=== PATIENT | female | born 1995 | race Caucasian/White ===

== ENCOUNTER → 2023-05-03 09:36 | Outpatient (REF) | payer MEDICAID, SELFPAY | LOC: PNTC 09:36 | PROVIDERS: ATTENDING PHYSICIAN Obstetrics & Gynecology | DX: O30.009 Twin pregnancy, unspecified number of placenta and unspecified number of amniotic sacs, unspecified trimester (principal) | CPT/HCPCS: 76805; 76810 ==

== ENCOUNTER → 2023-05-30 07:54 | Outpatient (REF) | payer OTHER, SELFPAY | LOC: PNTC 07:54 | PROVIDERS: ATTENDING PHYSICIAN Obstetrics & Gynecology | DX: O30.049 Twin pregnancy, dichorionic/diamniotic, unspecified trimester (principal) | CPT/HCPCS: 76811; 76812 ==

== ENCOUNTER → 2023-06-10 12:58 | Outpatient (REF) | payer OTHER, SELFPAY | LOC: RAD 12:58 | PROVIDERS: ATTENDING PHYSICIAN Obstetrics & Gynecology | DX: O31.20X0 Continuing pregnancy after intrauterine death of one fetus or more, unspecified trimester, not applicable or unspecified (principal) | CPT/HCPCS: 76815 ==